=== PATIENT | female | born 1975 | race African-American/Black ===

== ENCOUNTER 2018-05-05 16:13 | Emergency (ER) | payer OTHER ==
[~2018-05-05] VITALS: Ht 167.6 cm; Wt 120.0 kg
[2018-05-05] MEDS ORDERED: SODIUM CHLORIDE 0.9% 1,000 ML IV ONE (16:43)
[2018-05-05] MEDS ORDERED: ONDANSETRON HCL 4MG/2ML INJ IV STA (16:43)
[2018-05-05 18:00] VITALS: BP 130/89
[2018-05-05] MEDS ORDERED: LORAZEPAM 2MG/ML CPJ IV ONE (18:00)
== END 2018-05-05 18:15 | disposition left against medical advice (07) ==
LOC: ER 16:13
DX: R56.9 Unspecified convulsions (principal); E86.0 Dehydration
CPT/HCPCS: 93005; 96374; 99283; J2405; J7030